=== PATIENT | male | born 1945 | race Caucasian/White ===

== ENCOUNTER 2022-10-17 11:47 | Emergency (ER) | payer MEDICARE, SELFPAY ==
--- NOTE | ~2022-10-17 | XR_ITS ---
EXAMINATION: XR abdomen/kub 1V DATE: 10/17/2022 12:32 INDICATION: New onset constipation. TECHNIQUE: A supine view of the abdomen on 2 radiographs was obtained. COMPARISON: None. FINDINGS: There are no dilated loops of bowel. There is a moderate volume of stool in the colon. Chol elithiasis is noted. IMPRESSION: 1. Normal bowel gas pattern. 2. Cholelithiasis. Reviewed, dictated and finalized at location A.
[2022-10-17 11:57] VITALS: BP 102/73; PULSE 69; RESP 16; TEMP 36.6; O2SAT 97
--- NOTE | 2022-10-17 12:00 | ED.GENADULT ---
HPI - General Adult General Chief complaint: Unspecified Stated complaint: Constipated Time Seen by Provider: 10/17/22 12:06 Mode of arrival: ambulatory Limitations: no limitations History of Present Illness HPI narrative: 77-year-old male with history of dementia presents with concern for constipation. His reports he usually has bowel movement about every 2 days, he has not had a bowel movement about 5 days. She reports he takes in very little fluid throughout the day. Reports his fluid intake has decreased even more for the last several days. She reports his appetite is fairly normal. He is denying any abdominal pain, back pain, fever. Deny any dysuria, frequency, urgency. Denies any recent new medications or diet changes. MD complaint: Constipation Related Data Home Medications Medication Instructions Recorded Confirmed aspirin 81 mg chewable tablet 81 mg PO DAILY 10/17/22 10/17/22 lovastatin 40 mg tablet 40 mg PO DAILY 10/17/22 10/17/22 metoprolol tartrate 25 mg tablet 25 mg PO BID 10/17/22 10/17/22 quetiapine 50 mg tablet 25 mg PO DAILY 10/17/22 10/17/22 rivaroxaban 20 mg tablet (Xarelto) 20 mg PO DAILY 10/17/22 10/17/22 Allergies Allergy/AdvReac Type Severity Reaction Status Date / Time No Known Allergies Allergy Verified 10/17/22 12:06 Review of Systems Review of Systems: CONSTITUTIONAL: Denies malaise, chills, sweats, or fever. CARDIOVASCULAR: Denies chest pain, palpitations, or edema. RESPIRATORY: Denies cough or dyspnea. GASTROINTESTINAL: Denies abdominal pain, nausea, vomiting, diarrhea, bloody, or mucous stools. Reports constipation GENITOURINARY: Denies dysuria or hematuria. MUSCULOSKELETAL: Denies myalgia. PSYCHIATRIC: Denies anxiety or depression. All systems reviewed & are unremarkable except as noted in HPI and below PMFSH Comments At time of signature, agree with nursing past medical, surgical, social and family history. There is no relevant family history pertinent to the presenting complaint Exam Narrative: GENERAL: Well-appearing, well-nourished, and in no acute distress. HEAD: Normocephalic, atraumatic. EYES: PERRLA, sclera clear, and EOMI. No nystagmus. ENT: Nares clear. Mucous membranes moist. NECK: Supple. CHEST: No respiratory distress. Clear to auscultation. No bony deformities, no asymmetry. Speaks in full sentences. HEART: Regular rate and rhythm. No murmur heard. Normal peripheral pulses. ABDOMEN: Soft, nontender, nondistended, normal active bowel sounds, no palpable masses. SKIN: Warm, dry, no visible rash. NEURO: Alert and oriented x3. PSYCH: Normal mood and affect Course Course Emergency Course: Patient caregiver is aware of diagnosis, understands and agrees to treatment plan. Anticipatory guidance given. Patient caregiver agrees to follow-up as directed and is aware of reasons to seek care at the emergency department. Portions of this record may have been created with voice recognition software Level of Care: Express Care Visit Vital Signs Vital signs: Vital Signs Temperature 97.9 F 10/17/22 11:57 Pulse Rate 69 10/17/22 11:57 Respiratory Rate 16 10/17/22 11:57 Blood Pressure 102/73 10/17/22 11:57 Pulse Oximetry 97 10/17/22 11:57 Oxygen Delivery Room Air 10/17/22 11:57 Temperature 97.9 F 10/17/22 11:57 Pulse Rate 69 10/17/22 11:57 Respiratory Rate 16 10/17/22 11:57 Blood Pressure 102/73 10/17/22 11:57 Pulse Oximetry 97 10/17/22 11:57 Oxygen Delivery Room Air 10/17/22 11:57 Reviewed. Medical Decision Making MDM Narrative Medical decision making narrative: Exam findings and imaging show no acute concerns or changes; patient is non-toxic appearing and is in no distress. Patient is appropriate for outpatient treatment and follow-up. Vital Signs Vital Signs: Vital Signs Temperature 97.9 F 10/17/22 11:57 Pulse Rate 69 10/17/22 11:57 Respiratory Rate 16 10/17/22 11:57 Blood Pressure
== END 2022-10-17 12:45 | disposition home or self-care (01) ==
PROVIDERS: Emergency Provider Nurse Practitioner; PCP Internal Medicine
DX: K59.00 Constipation, unspecified (principal); Z86.73 Personal history of transient ischemic attack (TIA), and cerebral infarction without residual deficits; E78.00 Pure hypercholesterolemia, unspecified; I10 Essential (primary) hypertension; Z95.0 Presence of cardiac pacemaker
CPT/HCPCS: 74018; 99213; G0463